=== PATIENT | male | born 1980 | race Caucasian/White ===

== ENCOUNTER → 2016-10-18 | Outpatient (CLI) | payer MEDICAID ==
[2016-06-01 02:22] VITALS: BP 96/68
[~2016-10-18] MED LIST: ACETAMINOPHEN-O1 TAB PO; ACIDOPHILUS PO; ALLERGY RELIEF10 M1 PO; AMOXICILLI400 MG/52 PO; AREDS 2 PO; BACTRIM DS TAB1 EACH PO; CARAFATE1 GM PO; CEPHALEXIN500 M1 PO; ENTOCORT EC3 MG PO; HYDROXYZINE HCL25 M1 PO; IMODIUM 2MG CAPS2 MG PO; INTESTINEX1 CA1 PO; IRON; LISINOPRIL10 MG PO; MULTIVITAMIN1 SGL PO; NORCO 325 MG-7.1 TA1 PO; OMEPRAZOLE D/R20 MG PO; PERCOCET 325 MG1 TA2 PO; PRAVASTATIN40 MG PO; PRENATAL1 TA1 PO; REMICADE V100 MG/VIA IV; STOOL SOFTNER; SYNTHROID0.075 MG PO; TIKOSYN0.25 MG PO; ULTRAM50 MG PO; VIBRAMYCIN HYC100 MG PO; VITAMIN D
== END ==
LOC: LAB 09:16
DX: K91.2 Postsurgical malabsorption, not elsewhere classified (principal)

== ENCOUNTER → 2017-02-17 | Outpatient (CLI) | payer MEDICAID ==
[2016-06-01 02:22] VITALS: BP 96/68
== END ==
LOC: LAB 09:11
DX: K91.2 Postsurgical malabsorption, not elsewhere classified (principal)

== ENCOUNTER → 2017-06-01 | Outpatient (CLI) | payer MEDICAID ==
[2016-06-01 02:22] VITALS: BP 96/68
[2017-06-01 08:15] LABS: HEMATOCRIT 39.8 % (42.0-52.0); HEMOGLOBIN 12.6 g/dL (13.5-18.0); MEAN CELL VOLUME 92 fl (78-100); MEAN CORPUSCULAR HEMOGLOBIN 29 pg (27-31); MEAN CORPUSCULAR HGB CONC 32 g/dL (33-37); MEAN PLATELET VOLUME 8.5 fl (7.4-10.4); PLATELET COUNT 264 K/mm3 (130-400); RED BLOOD COUNT 4.35 M/mm3 (4.20-5.60); RED CELL DISTRIBUTION WIDTH 14.1 % (11.5-14.5); WHITE BLOOD COUNT 9.1 K/mm3 (4.8-10.8)
[2017-06-01 08:35] LABS: ALBUMIN 3.9 g/dL (3.5-5.0); BUN/CREATININE RATIO 35.2 (6.0-26.0); CALCIUM 9.5 mg/dL (8.4-10.2); POTASSIUM 4.7 mmol/L (3.6-5.0); TOTAL BILIRUBIN 0.5 mg/dL (0.2-1.3); TOTAL PROTEIN 6.9 g/dL (6.3-8.2)
[2017-06-01 08:42] LABS: LYMPHOCYTE 11 % (20-51); MONOCYTE 3 % (3-10); NEUTROPHILS 86 % (42-75)
[2017-06-01 09:29] LABS: ERYTHROCYTE SEDIMENTATION RATE 23 mm/hr (0-15)
== END ==
LOC: LAB 07:51
PROVIDERS: Internal Medicine
DX: C81.24 Mixed cellularity Hodgkin lymphoma, lymph nodes of axilla and upper limb (principal)

== ENCOUNTER → 2017-08-17 | Outpatient (CLI) | payer MEDICAID ==
[2016-06-01 02:22] VITALS: BP 96/68
== END ==
LOC: RAD 15:10
DX: J32.0 Chronic maxillary sinusitis (principal)

== ENCOUNTER → 2018-05-30 | Outpatient (CLI) | payer MEDICAID ==
[2016-06-01 02:22] VITALS: BP 96/68
[2018-05-30 09:49] LABS: HEMATOCRIT 39.9 % (42.0-52.0); HEMOGLOBIN 12.5 g/dL (13.5-18.0); MEAN CELL VOLUME 83 fl (78-100); MEAN CORPUSCULAR HEMOGLOBIN 26 pg (27-31); MEAN CORPUSCULAR HGB CONC 31 g/dL (33-37); MEAN PLATELET VOLUME 8.4 fl (7.4-10.4); PLATELET COUNT 233 K/mm3 (130-400); RED BLOOD COUNT 4.79 M/mm3 (4.20-5.60); RED CELL DISTRIBUTION WIDTH 17.2 % (11.5-14.5); WHITE BLOOD COUNT 9.8 K/mm3 (4.8-10.8)
[2018-05-30 10:02] LABS: ALBUMIN 4.2 g/dL (3.5-5.0); CALCIUM 9.3 mg/dL (8.4-10.2); POTASSIUM 3.6 mmol/L (3.6-5.0); TOTAL BILIRUBIN 0.4 mg/dL (0.2-1.3); TOTAL PROTEIN 6.9 g/dL (6.3-8.2)
[2018-05-30 11:04] LABS: LYMPHOCYTE 12 % (20-51); MONOCYTE 6 % (3-10); NEUTROPHILS 82 % (42-75)
[2018-05-30 11:05] LABS: ERYTHROCYTE SEDIMENTATION RATE 13 mm/hr (0-15)
== END ==
LOC: LAB 09:31
PROVIDERS: Internal Medicine
DX: C81.24 Mixed cellularity Hodgkin lymphoma, lymph nodes of axilla and upper limb (principal)

== ENCOUNTER → 2018-06-05 | Outpatient (CLI) | payer MEDICAID ==
[2016-06-01 02:22] VITALS: BP 96/68
== END ==
LOC: LAB 08:12
DX: K91.2 Postsurgical malabsorption, not elsewhere classified (principal)

== ENCOUNTER → 2018-06-19 | Outpatient (CLI) | payer MEDICAID ==
[2016-06-01 02:22] VITALS: BP 96/68
[2018-06-19 16:37] LABS: HEMATOCRIT 30.2 % (42.0-52.0); HEMOGLOBIN 9.3 g/dL (13.5-18.0); MEAN CELL VOLUME 86 fl (78-100); MEAN CORPUSCULAR HEMOGLOBIN 27 pg (27-31); MEAN CORPUSCULAR HGB CONC 31 g/dL (33-37); MEAN PLATELET VOLUME 8.7 fl (7.4-10.4); PLATELET COUNT 228 K/mm3 (130-400); RED CELL DISTRIBUTION WIDTH 18.5 % (11.5-14.5); WHITE BLOOD COUNT 11.9 K/mm3 (4.8-10.8)
[2018-06-19 17:35] LABS: CALCIUM 8.9 mg/dL (8.4-10.2); POTASSIUM 4.2 mmol/L (3.6-5.0)
[2018-06-19 20:06] LABS: LYMPHOCYTE 8 % (20-51); MONOCYTE 6 % (3-10); NEUTROPHILS 86 % (42-75)
[2018-06-19 20:07] LABS: MICROCYTOSIS 1+
== END ==
LOC: LAB 16:03
PROVIDERS: Family Medicine
DX: D64.9 Anemia, unspecified (principal)

== ENCOUNTER → 2018-07-13 | Outpatient (CLI) | payer MEDICAID ==
[2016-06-01 02:22] VITALS: BP 96/68
== END ==
LOC: RAD 13:01
DX: R60.0 Localized edema (principal); M79.661 Pain in right lower leg

== ENCOUNTER → 2018-08-22 | Outpatient (CLI) | payer MEDICAID ==
[2016-06-01 02:22] VITALS: BP 96/68
== END ==
LOC: RAD 09:00
DX: I87.8 Other specified disorders of veins (principal); Q61.02 Congenital multiple renal cysts; R93.421 Abnormal radiologic findings on diagnostic imaging of right kidney
CPT/HCPCS: Q9967

== ENCOUNTER → 2018-12-04 | Outpatient (CLI) | payer MEDICAID ==
[2016-06-01 02:22] VITALS: BP 96/68
== END ==
LOC: LAB 09:19
DX: K91.2 Postsurgical malabsorption, not elsewhere classified (principal)

== ENCOUNTER → 2019-01-10 | Outpatient (CLI) | payer MEDICAID ==
[~2019-01-10] VITALS: Ht 154.9 cm; Wt 54.5 kg
[~2019-01-10] MED LIST changes: +ATIVAN0.5 MG PO; +ZOLOFT25 M1 PO
[2019-01-10 10:53] LABS: HEMATOCRIT 43.1 % (42.0-52.0); HEMOGLOBIN 13.8 g/dL (13.5-18.0); MEAN PLATELET VOLUME 8.3 fl (7.4-10.4); RED BLOOD COUNT 4.98 M/mm3 (4.20-5.60); RED CELL DISTRIBUTION WIDTH 19.8 % (11.5-14.5); WHITE BLOOD COUNT 9.4 K/mm3 (4.8-10.8)
[2019-01-10 11:04] LABS: POTASSIUM 3.5 mmol/L (3.5-5.1)
[2019-01-10 11:05] LABS: CALCIUM 9.4 mg/dL (8.3-10.5)
[2019-01-10 11:12] VITALS: BP 129/85
[2019-01-10 11:25] LABS: URINE APPEARANCE CLEAR; URINE BILIRUBIN NEGATIVE (NEGATIVE); URINE COLOR YELLOW; URINE GLUCOSE NEGATIVE (NEGATIVE); URINE KETONE NEGATIVE (NEGATIVE); URINE NITRATE NEGATIVE (NEGATIVE); URINE PROTEIN(semi-quant) TRACE mg/dL (NEGATIVE); URINE UROBILINOGEN NORMAL (NORMAL)
[2019-01-10 11:26] LABS: URINE BLOOD NEGATIVE (NEGATIVE); URINE LEUKOCYTE ESTERASE NEGATIVE (NEGATIVE); URINE MUCUS PRESENT (NOT PRESENT); URINE WBC 0-1 /hpf (0-3)
== END ==
LOC: AMSURD 09:53
DX: N28.89 Other specified disorders of kidney and ureter (principal); Z85.71 Personal history of Hodgkin lymphoma; Z86.79 Personal history of other diseases of the circulatory system

== ENCOUNTER → 2019-02-21 | Outpatient (CLI) | payer MEDICAID ==
[2019-01-10 11:12] VITALS: BP 129/85
[2019-02-21 10:07] LABS: HEMATOCRIT 32.1 % (42.0-52.0); HEMOGLOBIN 9.8 g/dL (13.5-18.0); MEAN CELL VOLUME 94 fl (78-100); MEAN CORPUSCULAR HEMOGLOBIN 29 pg (27-31); MEAN CORPUSCULAR HGB CONC 31 g/dL (33-37); MEAN PLATELET VOLUME 7.9 fl (7.4-10.4); PLATELET COUNT 278 K/mm3 (130-400); RED CELL DISTRIBUTION WIDTH 15.5 % (11.5-14.5); WHITE BLOOD COUNT 12.8 K/mm3 (4.8-10.8)
[2019-02-21 10:16] LABS: ALBUMIN 3.6 g/dL (3.5-5.0)
[2019-02-21 10:17] LABS: POTASSIUM 4.5 mmol/L (3.5-5.1)
[2019-02-21 10:18] LABS: CALCIUM 9.7 mg/dL (8.3-10.5)
[2019-02-21 10:19] LABS: TOTAL PROTEIN 6.8 g/dL (6.4-8.3)
[2019-02-21 10:21] LABS: TOTAL BILIRUBIN 0.3 mg/dL (0.2-1.2)
[2019-02-21 11:05] LABS: BAND 1 % (0-10); LYMPHOCYTE 3 % (20-51); MONOCYTE 8 % (3-10); NEUTROPHILS 87 % (42-75)
== END ==
LOC: LAB 09:55
PROVIDERS: Family Medicine
DX: K63.9 Disease of intestine, unspecified (principal); I10 Essential (primary) hypertension

== ENCOUNTER → 2019-03-09 | Outpatient (CLI) | payer MEDICAID ==
[2019-01-10 11:12] VITALS: BP 129/85
[2019-03-09 10:45] LABS: EOS % 0.3 % (0.0-4.0); HEMATOCRIT 36.4 % (42.0-52.0); HEMOGLOBIN 11.2 g/dL (13.5-18.0); LYMPH# 1.1 (1.50-4.00); MEAN CELL VOLUME 92 fl (78-100); MEAN CORPUSCULAR HEMOGLOBIN 28 pg (27-31); MEAN CORPUSCULAR HGB CONC 31 g/dL (33-37); MEAN PLATELET VOLUME 8.4 fl (7.4-10.4); NEU # 7.9 (1.40-6.50); PLATELET COUNT 254 K/mm3 (130-400); RED BLOOD COUNT 3.94 M/mm3 (4.20-5.60); RED CELL DISTRIBUTION WIDTH 14.9 % (11.5-14.5)
[2019-03-09 10:51] LABS: ALBUMIN 3.8 g/dL (3.5-5.0)
[2019-03-09 10:52] LABS: POTASSIUM 3.8 mmol/L (3.5-5.1)
[2019-03-09 10:53] LABS: CALCIUM 9.4 mg/dL (8.3-10.5)
[2019-03-09 10:54] LABS: TOTAL PROTEIN 6.5 g/dL (6.4-8.3)
[2019-03-09 10:56] LABS: TOTAL BILIRUBIN 0.3 mg/dL (0.2-1.2)
== END ==
LOC: LAB 10:24
PROVIDERS: Family Medicine
DX: D64.9 Anemia, unspecified (principal); I10 Essential (primary) hypertension

== ENCOUNTER 2019-04-13 09:30 | Outpatient (RCR) | payer MEDICAID ==
[2019-01-10 11:12] VITALS: BP 129/85
== END 2019-04-13 10:00 | disposition still patient (30) ==
LOC: PT 09:30
DX: R53.81 Other malaise (principal); Z90.5 Acquired absence of kidney

== ENCOUNTER → 2019-05-29 | Outpatient (CLI) | payer MEDICAID ==
[2019-01-10 11:12] VITALS: BP 129/85
[2019-05-29 10:48] LABS: EOS % 0.4 % (0.0-4.0); HEMOGLOBIN 13.8 g/dL (13.5-18.0); LYMPH# 1.1 (1.50-4.00); MEAN CELL VOLUME 87 fl (78-100); MEAN CORPUSCULAR HEMOGLOBIN 28 pg (27-31); MEAN CORPUSCULAR HGB CONC 32 g/dL (33-37); MEAN PLATELET VOLUME 8.8 fl (7.4-10.4); MONO # 0.9 (0.20-0.80); NEU # 7.1 (1.40-6.50); PLATELET COUNT 189 K/mm3 (130-400); RED BLOOD COUNT 4.97 M/mm3 (4.20-5.60); RED CELL DISTRIBUTION WIDTH 15.6 % (11.5-14.5); WHITE BLOOD COUNT 9.1 K/mm3 (4.8-10.8)
[2019-05-29 10:56] LABS: POTASSIUM 3.7 mmol/L (3.5-5.1)
[2019-05-29 10:58] LABS: CALCIUM 9.6 mg/dL (8.3-10.5)
[2019-05-29 10:59] LABS: TOTAL PROTEIN 6.6 g/dL (6.4-8.3)
[2019-05-29 11:01] LABS: TOTAL BILIRUBIN 0.2 mg/dL (0.2-1.2)
[2019-05-29 11:46] LABS: ERYTHROCYTE SEDIMENTATION RATE 12 mm/hr (0-15)
== END ==
LOC: LAB 10:32
PROVIDERS: Internal Medicine
DX: C81.24 Mixed cellularity Hodgkin lymphoma, lymph nodes of axilla and upper limb (principal)

== ENCOUNTER → 2019-08-14 | Outpatient (CLI) | payer MEDICAID ==
[2019-01-10 11:12] VITALS: BP 129/85
[2019-08-14 10:56] LABS: HEMATOCRIT 41.3 % (42.0-52.0); HEMOGLOBIN 13.2 g/dL (13.5-18.0); MEAN CELL VOLUME 93 fl (78-100); MEAN CORPUSCULAR HEMOGLOBIN 30 pg (27-31); MEAN CORPUSCULAR HGB CONC 32 g/dL (33-37); MEAN PLATELET VOLUME 8.3 fl (7.4-10.4); PLATELET COUNT 177 K/mm3 (130-400); RED BLOOD COUNT 4.43 M/mm3 (4.20-5.60); RED CELL DISTRIBUTION WIDTH 16.1 % (11.5-14.5); WHITE BLOOD COUNT 10.6 K/mm3 (4.8-10.8)
[2019-08-14 11:05] LABS: POTASSIUM 4.1 mmol/L (3.5-5.1)
[2019-08-14 11:06] LABS: CALCIUM 9.1 mg/dL (8.3-10.5)
[2019-08-14 11:30] LABS: LYMPHOCYTE 8 % (20-51); NEUTROPHILS 85 % (42-75)
[2019-08-14 11:31] LABS: MONOCYTE 7 % (3-10)
== END ==
LOC: LAB 10:33
PROVIDERS: Family Medicine
DX: C85.90 Non-Hodgkin lymphoma, unspecified, unspecified site (principal); R19.7 Diarrhea, unspecified

== ENCOUNTER → 2019-08-23 | Outpatient (CLI) | payer MEDICAID ==
[2019-01-10 11:12] VITALS: BP 129/85
== END ==
LOC: RAD 09:00
DX: C85.90 Non-Hodgkin lymphoma, unspecified, unspecified site (principal); C64.9 Malignant neoplasm of unspecified kidney, except renal pelvis; Q61.3 Polycystic kidney, unspecified; I87.8 Other specified disorders of veins; R16.1 Splenomegaly, not elsewhere classified; R59.1 Generalized enlarged lymph nodes
CPT/HCPCS: Q9967

== ENCOUNTER → 2020-02-14 | Outpatient (CLI) | payer MEDICAID ==
[2019-01-10 11:12] VITALS: BP 129/85
[2020-02-14 10:28] LABS: HEMATOCRIT 39.2 % (42.0-52.0); HEMOGLOBIN 12.6 g/dL (13.5-18.0); MEAN CELL VOLUME 95 fl (78-100); MEAN CORPUSCULAR HEMOGLOBIN 31 pg (27-31); MEAN CORPUSCULAR HGB CONC 32 g/dL (33-37); MEAN PLATELET VOLUME 8.4 fl (7.4-10.4); PLATELET COUNT 140 K/mm3 (130-400); RED BLOOD COUNT 4.13 M/mm3 (4.20-5.60); WHITE BLOOD COUNT 9.4 K/mm3 (4.8-10.8)
[2020-02-14 10:30] LABS: ALBUMIN 3.7 g/dL (3.5-5.0)
[2020-02-14 10:32] LABS: CALCIUM 8.8 mg/dL (8.3-10.5)
[2020-02-14 10:33] LABS: TOTAL PROTEIN 6.3 g/dL (6.4-8.3)
[2020-02-14 10:35] LABS: TOTAL BILIRUBIN 0.2 mg/dL (0.2-1.2)
[2020-02-14 11:13] LABS: LYMPHOCYTE 9 % (20-51); MONOCYTE 10 % (3-10); NEUTROPHILS 81 % (42-75)
== END ==
LOC: RAD 10:10
PROVIDERS: Nurse Practitioner
DX: I70.201 Unspecified atherosclerosis of native arteries of extremities, right leg (principal)

== ENCOUNTER → 2020-03-10 | Outpatient (CLI) | payer MEDICAID ==
[2019-01-10 11:12] VITALS: BP 129/85
== END ==
LOC: RAD 03-06 09:15
DX: N28.89 Other specified disorders of kidney and ureter (principal)
CPT/HCPCS: Q9967

== ENCOUNTER → 2020-05-22 | Outpatient (CLI) | payer MEDICAID ==
[2019-01-10 11:12] VITALS: BP 129/85
[2020-05-22 09:41] LABS: EOS % 0.4 % (0.0-4.0); HEMATOCRIT 42.2 % (42.0-52.0); LYMPH# 1.1 (1.50-4.00); MEAN CELL VOLUME 94 fl (78-100); MEAN CORPUSCULAR HEMOGLOBIN 31 pg (27-31); MEAN CORPUSCULAR HGB CONC 33 g/dL (33-37); MEAN PLATELET VOLUME 8.3 fl (7.4-10.4); MONO # 0.9 (0.20-0.80); NEU # 7.3 (1.40-6.50); PLATELET COUNT 184 K/mm3 (130-400); RED BLOOD COUNT 4.51 M/mm3 (4.20-5.60); RED CELL DISTRIBUTION WIDTH 13.7 % (11.5-14.5); WHITE BLOOD COUNT 9.3 K/mm3 (4.8-10.8)
[2020-05-22 09:45] LABS: ALBUMIN 3.8 g/dL (3.5-5.0)
[2020-05-22 09:46] LABS: POTASSIUM 3.9 mmol/L (3.5-5.1)
[2020-05-22 09:48] LABS: TOTAL PROTEIN 6.3 g/dL (6.4-8.3)
[2020-05-22 09:50] LABS: TOTAL BILIRUBIN 0.3 mg/dL (0.2-1.2)
[2020-05-22 10:49] LABS: ERYTHROCYTE SEDIMENTATION RATE 9 mm/hr (0-15)
== END ==
LOC: LAB 09:21
PROVIDERS: Internal Medicine
DX: C81.24 Mixed cellularity Hodgkin lymphoma, lymph nodes of axilla and upper limb (principal)

== ENCOUNTER → 2020-06-03 | Outpatient (CLI) | payer MEDICAID ==
[2019-01-10 11:12] VITALS: BP 129/85
== END ==
LOC: RAD 09:54
DX: C81.90 Hodgkin lymphoma, unspecified, unspecified site (principal); R22.1 Localized swelling, mass and lump, neck

== ENCOUNTER → 2020-06-09 | Outpatient (CLI) | payer MEDICAID ==
[2019-01-10 11:12] VITALS: BP 129/85
== END ==
LOC: RAD 07:19
DX: C81.90 Hodgkin lymphoma, unspecified, unspecified site (principal)

== ENCOUNTER → 2020-08-18 | Outpatient (CLI) | payer MEDICAID ==
[2019-01-10 11:12] VITALS: BP 129/85
== END ==
LOC: LAB 11:06
DX: Z20.822 Contact with and (suspected) exposure to COVID-19 (principal)

== ENCOUNTER → 2020-09-05 | Outpatient (CLI) | payer MEDICAID ==
[2019-01-10 11:12] VITALS: BP 129/85
[2020-09-05 11:45] LABS: HEMATOCRIT 43.6 % (42.0-52.0); HEMOGLOBIN 13.6 g/dL (13.5-18.0); MEAN CELL VOLUME 95 fl (78-100); MEAN CORPUSCULAR HEMOGLOBIN 30 pg (27-31); MEAN CORPUSCULAR HGB CONC 31 g/dL (33-37); MEAN PLATELET VOLUME 8.4 fl (7.4-10.4); PLATELET COUNT 186 K/mm3 (130-400); RED CELL DISTRIBUTION WIDTH 14.2 % (11.5-14.5); WHITE BLOOD COUNT 9.4 K/mm3 (4.8-10.8)
[2020-09-05 12:05] LABS: ALBUMIN 3.8 g/dL (3.5-5.0)
[2020-09-05 12:06] LABS: CALCIUM 9.3 mg/dL (8.3-10.5)
[2020-09-05 12:08] LABS: TOTAL PROTEIN 6.9 g/dL (6.4-8.3)
[2020-09-05 12:09] LABS: TOTAL BILIRUBIN 0.3 mg/dL (0.2-1.2)
[2020-09-05 12:14] LABS: LYMPHOCYTE 11 % (20-51); MAGNESIUM 1.49 mg/dL (1.60-2.60); MONOCYTE 6 % (3-10); NEUTROPHILS 83 % (42-75)
[2020-09-09 21:28] LABS: .COPPER,S 0.94 mcg/mL (())
[2020-09-10 10:49] LABS: VITAMIN A 66.6 mcg/dL (())
[2020-09-10 17:57] LABS: VITAMIN E 9.5 mg/L (())
== END ==
LOC: LAB 11:16
DX: K90.9 Intestinal malabsorption, unspecified (principal)

== ENCOUNTER → 2020-09-17 | Outpatient (CLI) | payer MEDICAID ==
[2019-01-10 11:12] VITALS: BP 129/85
== END ==
LOC: RAD 11:27 → MAMMO 11:30 → RAD 11:30
DX: Z13.820 Encounter for screening for osteoporosis (principal); M81.0 Age-related osteoporosis without current pathological fracture

== ENCOUNTER → 2020-10-08 | Outpatient (CLI) | payer MEDICAID ==
[2019-01-10 11:12] VITALS: BP 129/85
[2020-10-08 14:29] LABS: HEMATOCRIT 42.6 % (42.0-52.0); HEMOGLOBIN 13.4 g/dL (13.5-18.0); MEAN CELL VOLUME 95 fl (78-100); MEAN CORPUSCULAR HEMOGLOBIN 30 pg (27-31); MEAN CORPUSCULAR HGB CONC 32 g/dL (33-37); MEAN PLATELET VOLUME 8.6 fl (7.4-10.4); PLATELET COUNT 178 K/mm3 (130-400); RED BLOOD COUNT 4.48 M/mm3 (4.20-5.60); RED CELL DISTRIBUTION WIDTH 13.9 % (11.5-14.5); WHITE BLOOD COUNT 8.1 K/mm3 (4.8-10.8)
[2020-10-08 15:01] LABS: NEUTROPHILS 92 % (42-75)
[2020-10-08 15:02] LABS: LYMPHOCYTE 5 % (20-51); MONOCYTE 2 % (3-10); SPHEROCYTE 1+; TEAR DROP CELLS 2+
[2020-10-08 15:36] LABS: ERYTHROCYTE SEDIMENTATION RATE 12 mm/hr (0-15)
== END ==
LOC: RAD 14:00
PROVIDERS: Internal Medicine
DX: C81.24 Mixed cellularity Hodgkin lymphoma, lymph nodes of axilla and upper limb (principal); R22.1 Localized swelling, mass and lump, neck

== ENCOUNTER → 2020-10-17 | Outpatient (CLI) | payer MEDICAID ==
[2019-01-10 11:12] VITALS: BP 129/85
== END ==
LOC: RAD 10:36
DX: M41.84 Other forms of scoliosis, thoracic region (principal); M54.2 Cervicalgia

== ENCOUNTER → 2021-02-19 | Outpatient (CLI) | payer MEDICAID | LOC: RAD 10:41 | DX: S20.211A Contusion of right front wall of thorax, initial encounter (principal) ==

== ENCOUNTER → 2021-03-11 | Outpatient (CLI) | payer MEDICAID ==
[2021-03-11 09:09] LABS: BASO # 0.01 (0.02-0.10); EOS # 0.02 (0.04-0.40); EOS % 0.2 % (0.0-4.0); HEMATOCRIT 42.6 % (42.0-52.0); HEMOGLOBIN 13.8 g/dL (13.5-18.0); LYMPH# 0.74 (1.50-4.00); MEAN CELL VOLUME 94 fl (78-100); MEAN CORPUSCULAR HEMOGLOBIN 31 pg (27-31); MEAN CORPUSCULAR HGB CONC 32 g/dL (33-37); MEAN PLATELET VOLUME 8.3 fl (7.4-10.4); MONO # 0.69 (0.20-0.80); NEU # 7.95 (1.40-6.50); PLATELET COUNT 148 K/mm3 (130-400); RED BLOOD COUNT 4.52 M/mm3 (4.20-5.60); RED CELL DISTRIBUTION WIDTH 13.9 % (11.5-14.5); WHITE BLOOD COUNT 9.4 K/mm3 (4.8-10.8)
[2021-03-11 09:29] LABS: ALBUMIN 3.6 g/dL (3.5-5.0)
[2021-03-11 09:30] LABS: CALCIUM 9.5 mg/dL (8.3-10.5)
[2021-03-11 09:31] LABS: TOTAL PROTEIN 6.5 g/dL (6.4-8.3)
[2021-03-11 09:33] LABS: TOTAL BILIRUBIN 0.3 mg/dL (0.2-1.2)
[2021-03-11 10:17] LABS: ERYTHROCYTE SEDIMENTATION RATE 28 mm/hr (0-15)
== END ==
LOC: LAB 08:54
PROVIDERS: Internal Medicine
DX: C81.24 Mixed cellularity Hodgkin lymphoma, lymph nodes of axilla and upper limb (principal)

== ENCOUNTER → 2021-03-12 | Outpatient (CLI) | payer MEDICAID | LOC: RAD 03-11 09:00 | DX: C81.24 Mixed cellularity Hodgkin lymphoma, lymph nodes of axilla and upper limb (principal); R16.1 Splenomegaly, not elsewhere classified | CPT/HCPCS: Q9967 ==

== ENCOUNTER → 2021-09-15 | Outpatient (CLI) | payer MEDICAID | LOC: RAD 12:59 | DX: M89.542 Osteolysis, left hand (principal) ==

== ENCOUNTER 2021-11-18 19:35 | Emergency (ER) | payer MEDICAID ==
[~2021-11-18] VITALS: Ht 154.9 cm; Wt 54.5 kg
[2021-11-18] MEDS ORDERED: SINGULAIR PO (21:28)
[2021-11-18 21:58] LABS: BASO # 0.03 K/mm3 (0.02-0.10); EOS # 0.02 K/mm3 (0.04-0.40); EOS % 0.1 % (0.0-4.0); HEMATOCRIT 45.7 % (42.0-52.0); HEMOGLOBIN 14.8 g/dL (13.5-18.0); MEAN CELL VOLUME 94 fl (78-100); MEAN CORPUSCULAR HEMOGLOBIN 31 pg (27-31); MEAN CORPUSCULAR HGB CONC 32 g/dL (33-37); MEAN PLATELET VOLUME 8.3 fl (7.4-10.4); MONO # 1.06 K/mm3 (0.20-0.80); NEU # 11.62 K/mm3 (1.40-6.50); PLATELET COUNT 153 K/mm3 (130-400); RED BLOOD COUNT 4.85 M/mm3 (4.20-5.60); RED CELL DISTRIBUTION WIDTH 13.9 % (11.5-14.5); WHITE BLOOD COUNT 13.6 K/mm3 (4.8-10.8)
[2021-11-18 22:08] LABS: ALBUMIN 4.1 g/dL (3.5-5.0); POTASSIUM 4.4 mmol/L (3.5-5.1)
[2021-11-18 22:09] LABS: CALCIUM 9.4 mg/dL (8.3-10.5)
[2021-11-18 22:11] LABS: TOTAL PROTEIN 6.8 g/dL (6.4-8.3)
[2021-11-18 22:12] LABS: TOTAL BILIRUBIN 0.4 mg/dL (0.2-1.2)
[2021-11-18 23:02] LABS: ERYTHROCYTE SEDIMENTATION RATE 7 mm/hr (0-15)
[2021-11-18] MEDS ORDERED: AUGMENTIN600 MG/5 M PO (23:08)
[2021-11-18 23:52] VITALS: BP 137/81
== END 2021-11-18 23:52 | disposition home or self-care (01) ==
LOC: ED 19:35
PROVIDERS: Physician Assistant
DX: S61.452A Open bite of left hand, initial encounter (principal); Z88.1 Allergy status to other antibiotic agents; W55.01XA Bitten by cat, initial encounter
CPT/HCPCS: J0696; J1200

== ENCOUNTER 2021-11-20 12:14 | Emergency (ER) | payer MEDICAID ==
[~2021-11-20] VITALS: Wt 54.4 kg
[~2021-11-20 12:14] MED LIST changes: +AUGMENTIN600 MG/5 M PO; +SINGULAIR PO
[2021-11-20] MEDS ORDERED: PREDNISOLONE AC10 ML OP (12:23)
[2021-11-20] MEDS ORDERED: BUDESONIDE3 MG PO (12:44)
[2021-11-20 12:59] LABS: HEMATOCRIT 43.7 % (42.0-52.0); HEMOGLOBIN 14.3 g/dL (13.5-18.0); MEAN CELL VOLUME 93 fl (78-100); MEAN CORPUSCULAR HEMOGLOBIN 31 pg (27-31); MEAN CORPUSCULAR HGB CONC 33 g/dL (33-37); MEAN PLATELET VOLUME 8.6 fl (7.4-10.4); PLATELET COUNT 130 K/mm3 (130-400); RED BLOOD COUNT 4.69 M/mm3 (4.20-5.60); RED CELL DISTRIBUTION WIDTH 13.9 % (11.5-14.5); WHITE BLOOD COUNT 12.5 K/mm3 (4.8-10.8)
[2021-11-20 13:09] LABS: ALBUMIN 3.9 g/dL (3.5-5.0); POTASSIUM 4.3 mmol/L (3.5-5.1)
[2021-11-20 13:10] LABS: CALCIUM 9.5 mg/dL (8.3-10.5)
[2021-11-20 13:12] LABS: TOTAL PROTEIN 6.5 g/dL (6.4-8.3)
[2021-11-20 13:13] LABS: TOTAL BILIRUBIN 0.6 mg/dL (0.2-1.2)
[2021-11-20 13:32] LABS: LYMPHOCYTE 8 % (20-51); MONOCYTE 11 % (3-10); NEUTROPHILS 81 % (42-75)
[2021-11-20 14:15] LABS: ERYTHROCYTE SEDIMENTATION RATE 31 mm/hr (0-15)
[2021-11-20 14:31] VITALS: BP 107/69
== END 2021-11-20 14:23 | disposition home or self-care (01) ==
LOC: ED 12:14
PROVIDERS: Nurse Practitioner
DX: L03.114 Cellulitis of left upper limb (principal); L98.9 Disorder of the skin and subcutaneous tissue, unspecified; D89.9 Disorder involving the immune mechanism, unspecified; E66.9 Obesity, unspecified; Z20.822 Contact with and (suspected) exposure to COVID-19; Z88.1 Allergy status to other antibiotic agents
CPT/HCPCS: J2930; J3010

== ENCOUNTER → 2022-01-06 | Outpatient (CLI) | payer MEDICAID ==
[~2022-01-06] MED LIST changes: +BUDESONIDE3 MG PO; +PREDNISOLONE AC10 ML OP
== END ==
LOC: RAD 15:03
DX: M25.871 Other specified joint disorders, right ankle and foot (principal)

== ENCOUNTER → 2022-03-15 | Outpatient (CLI) | payer MEDICARE, MEDICAID ==
[2022-03-15 09:41] LABS: BASO # 0.02 K/mm3 (0.02-0.10); EOS # 0.02 K/mm3 (0.04-0.40); EOS % 0.2 % (0.0-4.0); HEMATOCRIT 42.3 % (42.0-52.0); HEMOGLOBIN 13.7 g/dL (13.5-18.0); MEAN CELL VOLUME 96 fl (78-100); MEAN CORPUSCULAR HEMOGLOBIN 31 pg (27-31); MEAN CORPUSCULAR HGB CONC 32 g/dL (33-37); MEAN PLATELET VOLUME 8.2 fl (7.4-10.4); MONO # 0.85 K/mm3 (0.20-0.80); NEU # 9.15 K/mm3 (1.40-6.50); PLATELET COUNT 146 K/mm3 (130-400); RED BLOOD COUNT 4.43 M/mm3 (4.20-5.60); RED CELL DISTRIBUTION WIDTH 13.9 % (11.5-14.5); WHITE BLOOD COUNT 10.7 K/mm3 (4.8-10.8)
[2022-03-15 10:23] LABS: ALBUMIN 3.9 g/dL (3.5-5.0); POTASSIUM 4.1 mmol/L (3.5-5.1)
[2022-03-15 10:25] LABS: CALCIUM 9.5 mg/dL (8.3-10.5)
[2022-03-15 10:26] LABS: TOTAL PROTEIN 6.5 g/dL (6.4-8.3)
[2022-03-15 10:28] LABS: TOTAL BILIRUBIN 0.4 mg/dL (0.2-1.2)
[2022-03-15 10:42] LABS: ERYTHROCYTE SEDIMENTATION RATE 30 mm/hr (0-15)
== END ==
LOC: LAB 09:12
PROVIDERS: Internal Medicine
DX: C81.24 Mixed cellularity Hodgkin lymphoma, lymph nodes of axilla and upper limb (principal)

== ENCOUNTER → 2022-05-28 | Outpatient (CLI) | payer MEDICARE, MEDICAID | LOC: RAD 16:49 | DX: J98.4 Other disorders of lung (principal); R07.9 Chest pain, unspecified; R06.00 Dyspnea, unspecified ==

== ENCOUNTER → 2023-03-07 | Outpatient (CLI) | payer MEDICARE, MEDICAID ==
[~2023-03-07] MED LIST changes: +TYLENOL325 M1 PO
[2023-03-07 09:36] LABS: ALBUMIN 3.4 g/dL (3.5-5.0); POTASSIUM 3.4 mmol/L (3.5-5.1)
[2023-03-07 09:37] LABS: CALCIUM 8.3 mg/dL (8.3-10.5)
[2023-03-07 09:38] LABS: TOTAL PROTEIN 5.5 g/dL (6.4-8.3)
[2023-03-07 09:40] LABS: TOTAL BILIRUBIN 0.5 mg/dL (0.2-1.2)
[2023-03-07 09:46] LABS: HEMATOCRIT 36.1 % (42.0-52.0); HEMOGLOBIN 11.8 g/dL (13.5-18.0); MEAN CELL VOLUME 93 fl (78-100); MEAN CORPUSCULAR HEMOGLOBIN 31 pg (27-31); MEAN CORPUSCULAR HGB CONC 33 g/dL (33-37); MEAN PLATELET VOLUME 8.4 fl (7.4-10.4); PLATELET COUNT 115 K/mm3 (130-400); RED BLOOD COUNT 3.87 M/mm3 (4.20-5.60); RED CELL DISTRIBUTION WIDTH 14.5 % (11.5-14.5); WHITE BLOOD COUNT 8.8 K/mm3 (4.8-10.8)
[2023-03-07 10:36] LABS: NEUTROPHILS 88 % (42-75)
[2023-03-07 10:37] LABS: LYMPHOCYTE 6 % (20-51); MONOCYTE 6 % (3-10)
== END ==
LOC: LAB 09:09
PROVIDERS: Internal Medicine
DX: Z01.89 Encounter for other specified special examinations (principal)

== ENCOUNTER → 2023-10-13 | Outpatient (CLI) | payer MEDICARE, MEDICAID | LOC: RAD 09:00 | DX: R91.8 Other nonspecific abnormal finding of lung field (principal); R04.89 Hemorrhage from other sites in respiratory passages ==

== ENCOUNTER 2023-10-25 13:00 | Outpatient (RCR) | payer MEDICARE, MEDICAID | END 2023-11-18 | disposition home or self-care (01) | LOC: PT | DX: M62.81 Muscle weakness (generalized) (principal) ==

== ENCOUNTER → 2023-11-07 | Outpatient (CLI) | payer MEDICARE, MEDICAID ==
[2023-12-27 13:58] LABS: BASO # 0.03 K/mm3 (0.02-0.10); EOS # 0.03 K/mm3 (0.04-0.40); EOS % 0.3 % (0.0-4.0); LYMPH# 0.53 K/mm3 (1.50-4.00); MEAN CELL VOLUME 91 fl (78-100); MEAN CORPUSCULAR HEMOGLOBIN 28 pg (27-31); MEAN CORPUSCULAR HGB CONC 31 g/dL (33-37); MONO # 0.73 K/mm3 (0.20-0.80); NEU # 8.88 K/mm3 (1.40-6.50); PLATELET COUNT 129 K/mm3 (130-400); RED BLOOD COUNT 4.62 M/mm3 (4.20-5.60); RED CELL DISTRIBUTION WIDTH 15.1 % (11.5-14.5); WHITE BLOOD COUNT 10.2 K/mm3 (4.8-10.8)
== END ==
LOC: LAB 12:00
PROVIDERS: Nurse Practitioner
DX: C81.24 Mixed cellularity Hodgkin lymphoma, lymph nodes of axilla and upper limb (principal)

== ENCOUNTER → 2023-11-23 | Outpatient (CLI) | payer MEDICARE, MEDICAID | LOC: RAD 14:44 | DX: M19.042 Primary osteoarthritis, left hand (principal); M89.542 Osteolysis, left hand; I73.9 Peripheral vascular disease, unspecified ==

== ENCOUNTER → 2023-12-07 | Outpatient (CLI) | payer MEDICARE, MEDICAID ==
[2023-12-07 17:17] LABS: BASO # 0.01 K/mm3 (0.02-0.10); HEMATOCRIT 40.7 % (42.0-52.0); HEMOGLOBIN 12.8 g/dL (13.5-18.0); LYMPH# 0.64 K/mm3 (1.50-4.00); MEAN CELL VOLUME 90 fl (78-100); MEAN CORPUSCULAR HEMOGLOBIN 28 pg (27-31); MEAN CORPUSCULAR HGB CONC 31 g/dL (33-37); MEAN PLATELET VOLUME 8.6 fl (7.4-10.4); MONO # 0.93 K/mm3 (0.20-0.80); NEU # 12.48 K/mm3 (1.40-6.50); PLATELET COUNT 133 K/mm3 (130-400); RED BLOOD COUNT 4.54 M/mm3 (4.20-5.60); WHITE BLOOD COUNT 14.1 K/mm3 (4.8-10.8)
[2023-12-07 17:18] LABS: ALBUMIN 3.8 g/dL (3.5-5.0)
[2023-12-07 17:19] LABS: CALCIUM 9.1 mg/dL (8.3-10.5)
[2023-12-07 17:20] LABS: TOTAL PROTEIN 6.1 g/dL (6.4-8.3)
[2023-12-07 17:22] LABS: TOTAL BILIRUBIN 0.3 mg/dL (0.2-1.2)
== END ==
LOC: RAD 16:48
PROVIDERS: Nurse Practitioner
DX: M19.021 Primary osteoarthritis, right elbow (principal); M19.042 Primary osteoarthritis, left hand; I73.89 Other specified peripheral vascular diseases

== ENCOUNTER → 2023-12-14 | Outpatient (CLI) | payer MEDICARE, MEDICAID ==
[2023-12-14 15:53] LABS: BASO # 0.01 K/mm3 (0.02-0.10); EOS # 0.09 K/mm3 (0.04-0.40); EOS % 0.9 % (0.0-4.0); HEMATOCRIT 32.9 % (42.0-52.0); HEMOGLOBIN 10.4 g/dL (13.5-18.0); LYMPH# 0.71 K/mm3 (1.50-4.00); MEAN CELL VOLUME 89 fl (78-100); MEAN CORPUSCULAR HEMOGLOBIN 28 pg (27-31); MEAN CORPUSCULAR HGB CONC 32 g/dL (33-37); MEAN PLATELET VOLUME 8.3 fl (7.4-10.4); MONO # 0.77 K/mm3 (0.20-0.80); NEU # 8.51 K/mm3 (1.40-6.50); PLATELET COUNT 123 K/mm3 (130-400); RED CELL DISTRIBUTION WIDTH 16.8 % (11.5-14.5); WHITE BLOOD COUNT 10.2 K/mm3 (4.8-10.8)
[2023-12-14 15:56] LABS: ALBUMIN 3.5 g/dL (3.5-5.0)
[2023-12-14 15:59] LABS: TOTAL PROTEIN 5.6 g/dL (6.4-8.3)
[2023-12-14 16:01] LABS: TOTAL BILIRUBIN 0.2 mg/dL (0.2-1.2)
== END ==
LOC: LAB 15:38
PROVIDERS: Nurse Practitioner
DX: L03.114 Cellulitis of left upper limb (principal)

== ENCOUNTER → 2024-03-01 | Outpatient (CLI) | payer MEDICARE, MEDICAID ==
[2024-03-01 10:19] LABS: HEMATOCRIT 36.3 % (42.0-52.0); HEMOGLOBIN 11.5 g/dL (13.5-18.0); MEAN CELL VOLUME 89 fl (78-100); MEAN CORPUSCULAR HEMOGLOBIN 28 pg (27-31); MEAN CORPUSCULAR HGB CONC 32 g/dL (33-37); MEAN PLATELET VOLUME 8.2 fl (7.4-10.4); PLATELET COUNT 125 K/mm3 (130-400); RED BLOOD COUNT 4.08 M/mm3 (4.20-5.60); RED CELL DISTRIBUTION WIDTH 15.3 % (11.5-14.5)
[2024-03-01 11:18] LABS: BAND 1 % (0-10); LYMPHOCYTE 9 % (20-51); MONOCYTE 2 % (3-10); NEUTROPHILS 88 % (42-75)
== END ==
LOC: LAB 10:04
PROVIDERS: Nurse Practitioner
DX: C81.24 Mixed cellularity Hodgkin lymphoma, lymph nodes of axilla and upper limb (principal)

== ENCOUNTER → 2024-03-09 | Outpatient (CLI) | payer MEDICARE, MEDICAID ==
[2024-03-09 11:17] LABS: HEMATOCRIT 35.3 % (42.0-52.0); MEAN CELL VOLUME 88 fl (78-100); MEAN CORPUSCULAR HEMOGLOBIN 28 pg (27-31); MEAN CORPUSCULAR HGB CONC 31 g/dL (33-37); MEAN PLATELET VOLUME 8.6 fl (7.4-10.4); PLATELET COUNT 160 K/mm3 (130-400); RED CELL DISTRIBUTION WIDTH 15.4 % (11.5-14.5); WHITE BLOOD COUNT 14.7 K/mm3 (4.8-10.8)
[2024-03-09 11:29] LABS: ALBUMIN 3.3 g/dL (3.5-5.0)
[2024-03-09 11:31] LABS: CALCIUM 8.8 mg/dL (8.3-10.5)
[2024-03-09 11:32] LABS: TOTAL PROTEIN 5.9 g/dL (6.4-8.3)
[2024-03-09 11:34] LABS: TOTAL BILIRUBIN 0.3 mg/dL (0.2-1.2)
[2024-03-09 11:38] LABS: MAGNESIUM 1.46 mg/dL (1.60-2.60)
[2024-03-09 11:49] LABS: BAND 2 % (0-10); LYMPHOCYTE 2 % (20-51); MONOCYTE 6 % (3-10); NEUTROPHILS 90 % (42-75)
== END ==
LOC: LAB 10:58
PROVIDERS: Nurse Practitioner
DX: I50.9 Heart failure, unspecified (principal); D50.9 Iron deficiency anemia, unspecified; R53.81 Other malaise

== ENCOUNTER → 2024-03-10 | Outpatient (CLI) | payer MEDICARE, MEDICAID ==
[2024-03-10 11:11] LABS: HEMATOCRIT 35.5 % (42.0-52.0); MEAN CELL VOLUME 89 fl (78-100); MEAN CORPUSCULAR HEMOGLOBIN 28 pg (27-31); MEAN CORPUSCULAR HGB CONC 31 g/dL (33-37); MEAN PLATELET VOLUME 8.5 fl (7.4-10.4); PLATELET COUNT 149 K/mm3 (130-400); RED CELL DISTRIBUTION WIDTH 15.4 % (11.5-14.5); WHITE BLOOD COUNT 11.2 K/mm3 (4.8-10.8)
[2024-03-10 11:32] LABS: NEUTROPHILS 89 % (42-75)
[2024-03-10 11:33] LABS: LYMPHOCYTE 9 % (20-51); MONOCYTE 2 % (3-10)
== END ==
LOC: LAB 10:58
PROVIDERS: Nurse Practitioner
DX: D72.829 Elevated white blood cell count, unspecified (principal)

== ENCOUNTER → 2024-03-16 | Outpatient (CLI) | payer MEDICARE, MEDICAID ==
[2024-03-16 09:02] LABS: ALBUMIN 3.4 g/dL (3.5-5.0)
[2024-03-16 09:04] LABS: CALCIUM 9.5 mg/dL (8.3-10.5)
[2024-03-16 09:05] LABS: TOTAL PROTEIN 6.2 g/dL (6.4-8.3)
[2024-03-16 09:07] LABS: TOTAL BILIRUBIN 0.3 mg/dL (0.2-1.2)
[2024-03-16 09:54] LABS: D-DIMER 0.81 mg/L FEU (0.15-0.50)
== END ==
LOC: LAB 08:27
PROVIDERS: Nurse Practitioner
DX: M79.89 Other specified soft tissue disorders (principal)

== ENCOUNTER → 2024-03-19 | Outpatient (CLI) | payer MEDICARE ==
[~2024-03-19] VITALS: Ht 154.9 cm; Wt 56.4 kg
[~2024-03-19] MED LIST changes: +Iohexol 300 - 100 ML VIAL IV ONE; +Zoledronic Acid 100 ML IV ONE
[2024-03-19 09:05] VITALS: BP 10/68
== END ==
LOC: RAD 08:31
DX: J92.9 Pleural plaque without asbestos (principal); R91.8 Other nonspecific abnormal finding of lung field; N28.89 Other specified disorders of kidney and ureter; M79.89 Other specified soft tissue disorders; N13.30 Unspecified hydronephrosis; M81.0 Age-related osteoporosis without current pathological fracture; K63.89 Other specified diseases of intestine; Z85.72 Personal history of non-Hodgkin lymphomas
CPT/HCPCS: J3489; Q9967

== ENCOUNTER → 2024-04-14 | Outpatient (CLI) | payer MEDICARE, MEDICAID ==
[~2024-04-14] MED LIST changes: -Iohexol 300 - 100 ML VIAL IV ONE; -Zoledronic Acid 100 ML IV ONE
[2024-04-14 11:34] LABS: HEMATOCRIT 39.8 % (42.0-52.0); HEMOGLOBIN 12.4 g/dL (13.5-18.0); MEAN CELL VOLUME 87 fl (78-100); MEAN CORPUSCULAR HEMOGLOBIN 27 pg (27-31); MEAN CORPUSCULAR HGB CONC 31 g/dL (33-37); MEAN PLATELET VOLUME 9.4 fl (7.4-10.4); PLATELET COUNT 145 K/mm3 (130-400); RED BLOOD COUNT 4.57 M/mm3 (4.20-5.60); RED CELL DISTRIBUTION WIDTH 16.8 % (11.5-14.5); WHITE BLOOD COUNT 9.8 K/mm3 (4.8-10.8)
[2024-04-14 11:37] LABS: ALBUMIN 3.7 g/dL (3.5-5.0)
[2024-04-14 11:41] LABS: TOTAL BILIRUBIN 0.3 mg/dL (0.2-1.2)
[2024-04-14 12:42] LABS: BAND 1 % (0-10); LYMPHOCYTE 4 % (20-51); MONOCYTE 7 % (3-10); NEUTROPHILS 88 % (42-75)
== END ==
LOC: LAB 10:57
PROVIDERS: Family Medicine
DX: M70.21 Olecranon bursitis, right elbow (principal); I10 Essential (primary) hypertension

== ENCOUNTER → 2024-05-23 | Outpatient (CLI) | payer MEDICARE, MEDICAID ==
[2024-05-24 12:38] LABS: ANA SCREEN with REFLEX Negative (Negative)
== END ==
LOC: LAB 11:39
PROVIDERS: Nurse Practitioner
DX: M25.50 Pain in unspecified joint (principal)

== ENCOUNTER 2024-09-26 12:28 | Emergency (ER) | payer MEDICARE, MEDICAID ==
[~2024-09-26] VITALS: Ht 154.9 cm; Wt 52.3 kg
[2024-09-26 13:20] LABS: ALBUMIN 3.7 g/dL (3.5-5.0); BASO # 0.01 K/mm3 (0.02-0.10); EOS # 0.02 K/mm3 (0.04-0.40); EOS % 0.1 % (0.0-4.0); HEMATOCRIT 42.3 % (42.0-52.0); HEMOGLOBIN 13.6 g/dL (13.5-18.0); LYMPH# 0.65 K/mm3 (1.50-4.00); MEAN CELL VOLUME 89 fl (78-100); MEAN CORPUSCULAR HEMOGLOBIN 29 pg (27-31); MEAN CORPUSCULAR HGB CONC 32 g/dL (33-37); MEAN PLATELET VOLUME 10.6 fl (7.4-10.4); MONO # 1.14 K/mm3 (0.20-0.80); NEU # 14.19 K/mm3 (1.40-6.50); PLATELET COUNT 151 K/mm3 (130-400); RED BLOOD COUNT 4.74 M/mm3 (4.20-5.60); WHITE BLOOD COUNT 16.2 K/mm3 (4.8-10.8)
[2024-09-26 13:22] LABS: CALCIUM 8.8 mg/dL (8.3-10.5)
[2024-09-26 13:23] LABS: TOTAL PROTEIN 6.7 g/dL (6.4-8.3)
[2024-09-26 13:25] LABS: TOTAL BILIRUBIN 0.5 mg/dL (0.2-1.2)
[2024-09-26 15:21] LABS: URINE WBC 0 /hpf (0-3)
[2024-09-26] MEDS ORDERED: HYDROcodone/Acetaminophen 10-325 MG TAB PO ONE (15:30)
[2024-09-26] MEDS ORDERED: oxyCODONE 5 MG TAB PO ONE (15:30)
[2024-09-26 15:44] LABS: URINE APPEARANCE CLEAR (CLEAR); URINE BILIRUBIN NEGATIVE (NEGATIVE); URINE BLOOD NEGATIVE (NEGATIVE); URINE COLOR YELLOW (YELLOW); URINE GLUCOSE NEGATIVE (NEGATIVE); URINE KETONE NEGATIVE (NEGATIVE); URINE LEUKOCYTE ESTERASE NEGATIVE (NEGATIVE); URINE NITRATE NEGATIVE (NEGATIVE); URINE PROTEIN(semi-quant) TRACE (NEGATIVE)
[2024-09-26] MEDS ORDERED: ROXICODONE 55 MG/TAB PO (15:44)
[2024-09-26] MEDS ORDERED: CEFDINIR250 MG/5 M PO (15:44)
[2024-09-26 16:31] VITALS: BP 137/95
== END 2024-09-26 16:31 | disposition home or self-care (01) ==
LOC: ED 12:28
PROVIDERS: Family Medicine
DX: S42.414A Nondisplaced simple supracondylar fracture without intercondylar fracture of right humerus, initial encounter for closed fracture (principal); S81.011A Laceration without foreign body, right knee, initial encounter; S29.9XXA Unspecified injury of thorax, initial encounter; E87.6 Hypokalemia; D72.829 Elevated white blood cell count, unspecified; E66.9 Obesity, unspecified; Z85.72 Personal history of non-Hodgkin lymphomas; Z85.528 Personal history of other malignant neoplasm of kidney; Z68.21 Body mass index [BMI] 21.0-21.9, adult; W01.198A Fall on same level from slipping, tripping and stumbling with subsequent striking against other object, initial encounter

== ENCOUNTER → 2024-09-30 | Outpatient (CLI) | payer MEDICARE, MEDICAID ==
[~2024-09-30] VITALS: Ht 154.9 cm; Wt 52.3 kg
[~2024-09-30] MED LIST changes: +CEFDINIR250 MG/5 M PO; +Lidocaine 2% Jelly 5 GM TUBE TOP ONE; +ROXICODONE 55 MG/TAB PO
[2024-09-30 13:40] VITALS: BP 141/94
--- NOTE | 2024-09-30 14:28 | NUR ---
PATIENT HERE FOR WOUND CARE TO RLE, REPORTS TAKING OXYCODONE PRIOR TO APPT. MINIMAL AMOUNT OF SEROUS DRAINAGE TO BOTH OPTILOCKS. LIDOCAINE JELLY APPLIED PER ORDER TO WOUND BED. VASHE SOAK. DRIED WITH 4X4. XEROFORM TO WOUND BED TO RIGHT KNEE SKIN TEAR WELL RIGHT LARA. OPTILOCK X2 COVERING LARA. SECURED WITH SOFT ROLL AND TAPE. PATIENT TO RETURN TOMORROW FOR DRESSING CHANGE. PATIENT TOLERATED DRESSING CHANGE WITH MINIMAL DISCOMFORT.
== END ==
LOC: WOUND 13:14
DX: S81.011A Laceration without foreign body, right knee, initial encounter (principal); S41.111A Laceration without foreign body of right upper arm, initial encounter; X58.XXXA Exposure to other specified factors, initial encounter

== ENCOUNTER → 2024-10-01 | Outpatient (CLI) | payer MEDICARE, MEDICAID ==
[~2024-10-01] VITALS: Ht 154.9 cm; Wt 52.3 kg
[2024-10-01 14:30] VITALS: BP 153/91
--- NOTE | 2024-10-01 14:35 | NUR ---
PATIENT HERE FOR WOUND CARE TO RLE. PRIOR DRESSING REMOVED, THIS RN NOTED SIGNIFICANTLY LESS DRAINAGE WITHIN OPTILOCK. LIDOCAINE JELLY PLACED TOPICALLY TO WOUND BED. VASHE SOAK. XEOFORM TO WOUND, COVERED WITH OPTILOCK X2 TO LARA AND 4X4 TO KNEE. COVERED WITH SOFT ROLL AND MEDIPORE TAPE. NEW TUBIGRIP PLACED. PATIENT TO RETURN TUESDAY AT 11AM.
== END ==
LOC: WOUND 14:04
DX: S81.811A Laceration without foreign body, right lower leg, initial encounter (principal); S41.111A Laceration without foreign body of right upper arm, initial encounter; X58.XXXA Exposure to other specified factors, initial encounter

== ENCOUNTER → 2024-10-02 | Outpatient (CLI) | payer MEDICARE, MEDICAID ==
[~2024-10-02] VITALS: Ht 154.9 cm; Wt 52.3 kg
[2024-10-02 15:11] VITALS: BP 149/93
--- NOTE | 2024-10-02 15:16 | NUR ---
PT HERE FOR WOUND CARE TO RT LARA. DRESSINGS ARE SOAKING THROUGH WITH SEROSANGUINOUS DRAINAGE. APPLIED LIDOCAINE 2% GEL TO WOUNDS. CLEANED WITH VASHE. APPLIED SKIN PREP AROUND OUTER EDGES OF WOUND. APPLIED COLLAGEN JILL TO GRANULATION AREAS AND HYDROFERA BLUE READY TO DRAINING AREAS AND COVERED HYDROFERA BLUE WITH AQUACEL EXTRA AND OPTILOCK. SECURED WITH SOFT ROLL AND MEDIPORE TAPE. APPLIED TUBIGRIP SIZE E. APPLIED CLOTH BANDAID TO RT SUPERFICIAL KNEE ABRASION. PT WILL RETURN TOMORROW FOR DRESSING CHANGE.
== END ==
LOC: WOUND 14:59
DX: S81.011A Laceration without foreign body, right knee, initial encounter (principal); S41.111A Laceration without foreign body of right upper arm, initial encounter; X58.XXXA Exposure to other specified factors, initial encounter
CPT/HCPCS: 18895; 19899; A6021